=== PATIENT | female | born 1990 | race Caucasian/White ===

== ENCOUNTER 2022-05-13 17:53 | Emergency (ER) | payer MEDICAID ==
[~2022-05-13] VITALS: Ht 175.3 cm; Wt 110.2 kg
[2022-05-13 17:59] VITALS: BP_SYST 157
[2022-05-13] MEDS ORDERED: NACL 0.9% 1,000 ML IV ONE ×2 (20:00→21:45)
[2022-05-13] MEDS ORDERED: ONDANSETRON HCL 4 MG/2 ML VIAL IVP ONE (20:00)
[2022-05-13] MEDS ORDERED: MORPHINE 4 MG INJ. 4 MG/ML VIAL IVP ONE (20:00)
[2022-05-13 21:18] LABS: BASOPHILS % (AUTO) 0.2 % (0.0-2.0); EOSINOPHILS # (AUTO) 0.1 K/uL (0.0-0.4); EOSINOPHILS % (AUTO) 0.8 % (0.0-4.0); HEMATOCRIT 25.6 % (36-48); HEMOGLOBIN 8.3 g/dL (12.0-16.0); LYMPHOCYTES % (AUTO) 16.9 % (20.5-51.5); MEAN CORPUSCULAR HEMOGLOBIN 27 pg (27-31); MEAN CORPUSCULAR HGB CONC 32 % (32-36); MEAN CORPUSCULAR VOLUME 83 fL (79.0-98.0); MONOCYTES # (AUTO) 0.7 K/uL (0.0-1.0); MONOCYTES % (AUTO) 6.2 % (1.7-9.3); NEUTROPHILS % (AUTO) 75.9 % (40.0-70.0); PLATELET COUNT (AUTO) 393 K/uL (130-430); RED BLOOD CELL COUNT(AUTO) 3.09 MIL/uL (4.2-6.2); RED CELL DISTRIBUTION WIDTH 20.8 % (9.0-15.0); WHITE BLOOD COUNT (AUTO) 11.8 K/uL (4.8-10.8)
[2022-05-13 21:29] LABS: INR 0.9 (0.8-1.2); PROTHROMBIN TIME 9.2 SECS (9.5-12.5)
[2022-05-13 21:31] LABS: CALCIUM 8.5 mg/dL (8.4-11.0); CREATININE 0.63 mg/dL (0.55-1.30)
[2022-05-13 21:36] LABS: ALBUMIN 2.1 g/dL (3.4-4.8); TOTAL BILIRUBIN 0.2 mg/dL (0.0-1.0)
[2022-05-13] MEDS ORDERED: PIPERACILLIN/TAZO 3.375 GM in NS 50 ML IV ONE (21:45)
[2022-05-13] MEDS ORDERED: PIPERACILLIN/TAZOBACTAM 3.375 GM/VIAL (ZOSYN) IV ONE (22:10)
[2022-05-13] MEDS ORDERED: MORPHINE 4 MG INJ. 4 MG/ML VIAL ONE (22:12)
[2022-05-13] MEDS ORDERED: ONDANSETRON HCL 4 MG/2 ML VIAL ONE (22:14)
[2022-05-13] MEDS ORDERED: HYDR-3917 PO (22:25)
[2022-05-13] MEDS ORDERED: BACI15OI13 TP (22:25)
[2022-05-13] MEDS ORDERED: CEPH-548 PO (22:25)
[2022-05-13] MEDS ORDERED: ACET-73 PO (22:25)
[2022-05-13 23:30] VITALS: BP_SYST 153
== END 2022-05-13 23:30 | disposition home or self-care (01) ==
LOC: SED 17:53
DX: O86.01 Infection of obstetric surgical wound, superficial incisional site (principal); L03.311 Cellulitis of abdominal wall; Z79.899 Other long term (current) drug therapy; Z20.822 Contact with and (suspected) exposure to COVID-19
CPT/HCPCS: 99285; 74177; 96365; 96375; 87426; 80053; 85025; 85610; 85730; 87040; 36415; 76376; 83605; J2405; J2543; J2270; Q9967